=== PATIENT | male | born 1995 | race Caucasian/White ===

== ENCOUNTER 2017-02-14 16:15 | Emergency (ER) | payer OTHER ==
[~2017-02-14 16:15] MED LIST: DICLOFENAC PO; ELIMITE60 GM TOP; MUCINEX DM1 TAB.SR . PO; NO MEDICATIONS; NORFLEX100 M1 PO; PHENERGAN25 MG PO; PREDNISONE PO; ROBAXIN500 MG PO; VOLTAREN50 MG PO; VOLTAREN75 MG PO; ZITHROMAX PO; ZYRTEC; ZYRTEC PO; ZYRTEC10 M2
[2017-02-14] MEDS ORDERED: ZYRTEC (16:35)
== END 2017-02-14 19:55 | disposition home or self-care (01) ==
LOC: SED 16:15
DX: A38.9 Scarlet fever, uncomplicated (principal); J02.0 Streptococcal pharyngitis; Z90.89 Acquired absence of other organs; F17.210 Nicotine dependence, cigarettes, uncomplicated
CPT/HCPCS: 87880; 99283; J0561

== ENCOUNTER 2017-02-16 18:27 | Emergency (ER) | payer OTHER ==
[2017-02-16 20:09] LABS: BASOPHIL% 0.7 % (0-2.5); DIFF IND NO; EOSINOPHIL# 0.1 X10e3 (0-0.7); EOSINOPHIL% 1.3 % (0.0-7.0); HEMATOCRIT 53.5 % (38.0-50.0); HEMOGLOBIN 18.9 gm/dL (13.0-16.0); LYMPHOCYTE# 2.3 X10e3 (1.0-3.5); LYMPHOCYTE% 39.8 % (17.0-45.0); MEAN CELL VOLUME 88.1 FL (83-96); MEAN CORPUSCULAR HEMOGLOBIN 31.1 PG (28-34); MEAN CORPUSCULAR HGB CONC 35.3 g/dL (30-36); MEAN PLATELET VOLUME 8.3 FL (6.5-11.5); MONOCYTE# 0.6 X10e3 (0-1.0); MONOCYTE% 10.3 % (3.0-12.0); NEUTROPHIL# 2.8 X10e3 (1.5-7.1); NEUTROPHIL% 47.9 % (40-75); PLATELET COUNT 136 X10e3 (140-420); RED BLOOD COUNT 6.07 X10e (3.90-5.60); RED CELL DISTRIBUTION WIDTH 12.6 % (11.0-15.5); WHITE BLOOD COUNT 5.9 X10e3 (4.0-10.5)
[2017-02-16 20:26] LABS: ALBUMIN SERUM 4.5 g/dL (3.5-5.0); BILIRUBIN,TOTAL 1.1 mg/dL (0.2-2.0); BUN/CREATININE RATIO 17.14; CALCIUM SERUM 9.4 mg/dL (8.4-10.2); CREATININE SERUM 0.7 mg/dL (0.6-1.4); GLOM FILT RATE Estimated 133.1 mL/min (>60); POTASSIUM 3.2 mmol/L (3.5-5.1); PROTEIN TOTAL SERUM 7.8 g/dL (6.0-8.3)
== END 2017-02-16 21:12 | disposition home or self-care (01) ==
LOC: SED 18:27
PROVIDERS: Physician Assistant Medical
DX: R21 Rash and other nonspecific skin eruption (principal)
CPT/HCPCS: 36415; 80053; 85025; 86592; 86765; 99283